=== PATIENT | female | born 1965 | race Caucasian/White ===

== ENCOUNTER 2024-07-02 14:30 | Outpatient (CLI) | payer MEDICAID | END 2024-07-02 23:59 | disposition home or self-care (01) | LOC: MRI02 14:30 | PROVIDERS: ATTEND Nurse Practitioner | DX: M51.27 Other intervertebral disc displacement, lumbosacral region (principal); M48.07 Spinal stenosis, lumbosacral region; M43.10 Spondylolisthesis, site unspecified; M25.48 Effusion, other site; M43.16 Spondylolisthesis, lumbar region | CPT/HCPCS: 72148 ==